=== PATIENT | male | born 1975 | race Hispanic/Latino ===

== ENCOUNTER → 2022-03-29 | Day surgery (SDC) | payer OTHER ==
[~2022-03-29] MED LIST: ALEVE220 M1 PO; BUPIVACAINE 0.25% 30ML SDV ONE; COLLAGEN 15001 EACH PO; DEXAMETHASONE SOD PHOS INJ 4 MG/ML SDV ONE; FENTANYL CITRATE/PF 100MCG/2 ML INJ ONE; FLONASE ALLERG9.9 ML INH; KETOROLAC TROMETHAMINE 30 MG/ML VIAL ONE; LIDOCAINE 1% W/EPINEPHRINE 20 ML VIAL ONE; LIDOCAINE HCL 2% LOCAL INJ 5 ML SDV VIAL INJ ONE; MIDAZOLAM HCL 2 MG/2 ML VIAL ONE; MOBIC7.5 MG PO; MOVE FREE JOIN1 EACH PO; MULTI-VITAMIN1 EACH PO; ONDANSETRON HCL INJ 2MG/ML 2ML 2 MG/ML VIAL ONE; POVIDONE IODINE 0.05% 0.05 % ML PO ONE; PROPOFOL IV EMULSION 10 MG/ML 20 ML VIAL ONE; RESVERATROL PL1 EACH PO; SEVOFLURANE INHAL SOLN 250 ML PEN BTL ONE; VIAGRA50 MG PO
[2022-03-29 10:50] VITALS: BP 130/82
== END | disposition home or self-care (01) ==
LOC: OR 06:06
PROVIDERS: ATTEND Orthopaedic Surgery
DX: S83.231A Complex tear of medial meniscus, current injury, right knee, initial encounter (principal); S83.281A Other tear of lateral meniscus, current injury, right knee, initial encounter; M22.41 Chondromalacia patellae, right knee; M67.51 Plica syndrome, right knee; G47.33 Obstructive sleep apnea (adult) (pediatric); R00.1 Bradycardia, unspecified; K75.81 Nonalcoholic steatohepatitis (NASH); X58.XXXA Exposure to other specified factors, initial encounter; Z01.810 Encounter for preprocedural cardiovascular examination; Z01.812 Encounter for preprocedural laboratory examination; Z20.822 Contact with and (suspected) exposure to COVID-19; Z79.82 Long term (current) use of aspirin; Z79.899 Other long term (current) drug therapy
CPT/HCPCS: 29882; 93005; C1713 ×2; J0690; J1100; J1885; J2001; J2250; J2405; J2704; J3010; U0002